=== PATIENT | female | born 1955 | race Two or more races ===

== ENCOUNTER 2024-04-23 12:15 | Emergency (ER) | payer MEDICARE, SELFPAY ==
--- NOTE | 2024-04-23 13:09 | XR_ITS ---
Examination: PA lateral chest 2 views TECHNIQUE: Upright PA lateral chest 2 views Exam date and time: April 23, 2024 1339 hours Comparison May 15, 2020 INDICATIONS: Shortness of breath chest pain beginning 2 days ago FINDINGS: Mild opacity in the lingular segment obscuring detail left cardiac contour Normal heart size No pulmonary edema Intact osseous structures IMPRESSION: Early pneumonia lingular segment left upper lobe
--- NOTE | 2024-04-23 13:09 | EKG_ITS ---
[facility] Test Date: 2024-04-23 Pat Name: DARREL PALMA Department: Room: - Gender: Female Pot Filler: : 1955 Requested By: Asya Brown ([facility]) Nica Order Number: [id number] Reading MD: Asya Brown ([facility]) Nica Measurements Intervals [place] Rate: 112 P: 54 NM: 126 QRS: -31 QRSD: 79 T: 45 QT: 297 QTc: 406 Interpretive Statements SINUS TACHYCARDIA MARKED LEFT AXIS DEVIATION [QRS AXIS < -30] Compared to ECG 05/15/2020 15:11:04 Left-axis deviation now present /store/S0/[id number]/ecg/[id number].pdf
--- NOTE | 2024-04-23 13:10 | PD.EDRME ---
Rapid Medical Screening Exam RME Arrival date/time: 04/23/24 12:15 68-year-old female who presents to the emergency department with complaints of bodyaches, hyperglycemia x 2 days. I have greeted and performed a focused initial assessment of this patient. Initial appropriate labs ordered at this time. A comprehensive ED assessment and evaluation of the patient and analysis of all test and completion of medical decision making process will be conducted by additional ED provider. Chief Complaint: Flu Like Symptoms Time Seen by Provider: 04/23/24 13:02
[2024-04-23] MEDS: ONDANSETRON ODT 4 MG TABRAP PO (13:17)
[2024-04-23 13:24] VITALS: BP 106/68; PULSE 86; RESP 18; TEMP 36.6; O2SAT 100
[2024-04-23 13:41] LABS: Basophils # (Auto) 0.1 Thou/mm3 (0.0-0.2); Basophils % (Auto) 0 % (0-2.5); Eosinophils % (Auto) 0 % (0-10); Hematocrit 33.7 % (36.0-46.0); Hemoglobin 11.7 g/dL (12.0-16.0); Immature Granulocytes % (Auto) 1 % (0-0); Immature Granulocytes Auto 0.09 Thou/mm3 (0.00-0.00); Lymphocytes # (Auto) 0.5 Thou/mm3 (1.0-4.8); Lymphocytes % (Auto) 3 % (10-50); Mean Corpuscular HGB Conc 34.7 g/dl (31.0-37.0); Mean Corpuscular Hemoglobin 30.8 pg (25.0-35.0); Mean Corpuscular Volume 89 fL (80-100); Monocytes % (Auto) 6 % (0-12); Neutrophils # (Auto) 15.6 Thou/mm3 (1.8-7.7); Neutrophils % (Auto) 91 % (37-80); Nucleated Red Blood Cell % 0 /100 WBC (0); Platelet Count 157 Thou/mm3 (140-440); RDW Standard Deviation 42.1 fL (36.4-46.3); White Blood Count 17.3 Thou/mm3 (3.6-11.0)
[2024-04-23 13:58] LABS: B-Type Natriuretic Peptide 84 pg/mL (0-100)
[2024-04-23 14:07] LABS: Alanine Aminotransferase 22 U/L (10-49); Albumin, Serum 3.7 gm/dL (3.4-4.8); Albumin/Globulin Ratio 1.2 (1.2-2.2); Alkaline Phosphatase 162 U/L (46-116); Anion Gap 7 (7-16); Aspartate Amino Transferase 20 U/L (0-34); BUN/Creatinine Ratio 33 Ratio (12-20); Bilirubin,Total 0.3 mg/dL (0.3-1.2); Blood Urea Nitrogen 30 mg/dL (9-23); Calcium 8.7 mg/dL (8.3-10.6); Calcium (Corrected) 8.9 mg/dL (8.5-10.1); Carbon Dioxide 30.7 mMol/L (20.0-31.0); Chloride 91 mMol/L (98-107); Creatinine (Component) 0.9 mg/dL (0.6-1.3); Lipase 22 U/L (12-53); Magnesium 2.1 mg/dL (1.6-2.6); Osmolality,Calculated 282 (275-295); Potassium 4.3 mMol/L (3.4-5.1); Sodium 129 mMol/L (136-145); Total Protein 6.7 gm/dL (5.7-8.2); Troponin I 0.032 ng/mL (0.0-0.045); eGFR > 60 See Note
[2024-04-23 14:09] LABS: Glucose 408 mg/dL (74-106)
[2024-04-23 14:27] LABS: INR 1.1 (0.9-1.3); Prothrombin Time 11.6 Seconds (9.0-12.2)
--- NOTE | 2024-04-23 15:03 | PC.NURSE ---
no answer x 1 at 1500. checked outside and lobby.
[2024-04-23] MEDS: INSULIN GLARGINE (Lantus) 5 UNIT/0.05 ML (PER 5 UNITS) 10 UNIT SC (15:22)
--- NOTE | 2024-04-23 15:25 | EDNOTE_ITS ---
ED General RME/HPI General Chief complaint: Flu Like Symptoms Stated complaint: BODY PAIN/ABD PAIN/NOT EATING x 3 DAYS Time Seen by Provider: 04/23/24 13:02 Arrival date/time: 04/23/24 12:15 RME / HPI [facility] 04/23/24 12:15 headaches, bodyaches, hyperglycemia x 2 days. HPI: Patient is a 68-year-old female with PMH of essential HTN, type 2 IDDM, hyperlipidemia, GERD and peripheral neuropathy, who presented to the emergency department with complaints of headaches, chills and hyperglycemia x 2 days. Patient's symptoms started 30-48 hours ago, she initially started experiencing chills and subjective fevers, which was followed by sudden elevation in her blood sugar (300-400). Patient endorses that she is otherwise compliant with her insulin and frequently checks her sugar at home. She has also had a non productive cough for the last week which she attributed to a viral infection. She denies having any sick contacts or other systemic symptoms. She recently travelled to [place] and discontinued her BP medications as she ran out of pills. She is unsure if she may have caught an infection on her vacation. Of note, patient's PCP recently reduced her Glargine from 30 units HS -> 25 units HS. In the ED, vitals showed BS was > 400, temp and BP wnl, and WBC 17.3 Past medical history: essential HTN, type 2 IDDM, hyperlipidemia, GERD and peripheral neuropathy Allergies: NKFDA Social history: Marital?Status:? Tobacco?Use:?Denies ETOH?Use:?Denies Drug?Note:?Denies Social?History?Note:?Lives?at home with family Family history: Denies any family history of scd or stroke. No cancers. L Related Data Home Medications ?Medication ?Instructions ?Recorded ?Confirmed insulin detemir U-100 100 unit/mL 30 unit subcut HS 05/15/20 05/15/20 subcutaneous solution (Levemir U-100 Insulin) insulin regular human 100 unit/mL 15 unit subcut DAILY 05/15/20 05/15/20 injection solution (Novolin R Regular U-100 Insulin) Previous Rx's ?Medication ?Instructions ?Recorded amoxicillin 875 mg-potassium 1 tab PO BID #10 tabs 05/16/20 clavulanate 125 mg tablet (Augmentin) doxycycline hyclate 100 mg tablet 100 mg PO BID #14 tabs 05/16/20 pantoprazole 40 mg tablet,delayed 40 mg PO QDAY #20 tabs 05/05/23 release (Protonix) rizatriptan 10 mg tablet (Maxalt) 10 mg PO Q2H PRN migraine headache 05/05/23 #10 tabs amoxicillin 875 mg-potassium 1 tab PO BID #14 tabs 04/23/24 clavulanate 125 mg tablet Allergies Allergy/AdvReac Type Severity Reaction Status Date / Time No Known Allergies Allergy Verified 04/23/24 12:22 Review of Systems Review of Systems Narrative Review of Systems: GENERAL: fevers/chills , no diaphoresis, bodyaches HEENT: Denies headache or visual/hearing changes. Denies nasal discharge. NEURO: Denies unusual weakness or difficulty speaking. CARDIO: Denies chest pain or palpitations. PULM: Denies SOB, dry coughing, or wheezing. GI: Denies abdominal pain, N/V/C/D. Reports having BMs URO: Denies burning/itching/pain/urinary changes. W[employer]PER[employer]: Denies menstrual changes, hot flashes. MSK/EXT/SKIN: Denies joint/skeletal/muscle pain, issues/changes in upper or lower extremities, itchiness, or superficial pain. PSYCH: Cooperative, pleasant mood & affect. The rest of the review of systems is otherwise negative. ED Exam Narrative Physical exam: Constitutional Alert, oriented x4 and comfortable HEENT Vision grossly intact. Patent nares. Trachea midline. Respiratory Chest normal on inspection and clear to auscultation bilaterally. Cardiovascular S1 and S2 audible, RRR. No murmurs or carotid bruit. No gross JVD. Abdominal Soft and non tender to palpation in all quadrants. BS + Genitourinary No bladder tenderness, no flank pain. Normal to palpation. Musculoskeletal Extremities tone within normal limits. No LE edema. Neurological CN II - XII grossly intact. Extremity motor and sensation grossly intact. Skin Warm, dry and intact. No apparent lesions. Psychiatric Patient has a good affect, is cooperative. Course Quality Measures none Orders Category Date Time Status Bedside COVID-19 Antigen Test NOW Care 04/23/24 13:09 Completed Bedside Influenza A&B Antigen Test NOW Care 04/23/24 13:10 Completed EKG (ED ONLY) *Do not use* NOW Care 04/23/24 13:09 Completed EKG (ED Only) Stat Exams 04/23/24 13:09 Draft XR chest 2V Stat Exams 04/23/24 13:09 Completed B-Type Natriuretic Peptide Stat Lab 04/23/24 13:31 Completed Beta Hydroxybutyrate Stat Lab 04/23/24 14:49 Completed CBC Stat Lab 04/23/24 13:31 Completed Comprehensive Metabolic Panel Stat Lab 04/23/24 13:31 Completed Lactic Acid [Lactate (Lactic Acid)] Stat Lab 04/23/24 16:24 Completed Lipase Stat Lab 04/23/24 13:31 Completed Magnesium Stat Lab 04/23/24 13:31 Completed Prothrombin Time with INR Stat Lab 04/23/24 13:31 Completed Troponin I Stat Lab 04/23/24 13:31 Completed Urinalysis Stat Lab 04/23/24 20:10 Completed Insulin Glargine Inj [Lantus Inj] Med 04/23/24 14:39 Discontinued 10 unit SC X1 ONE Levofloxacin/D5w 750Mg Ivpb [Levaquin Ivpb] Med 04/23/24 16:09 Discontinued 750 mg in 150 ml IV X1 Ondansetron Odt [Zofran Odt] Med 04/23/24 13:09 Discontinued 4 mg PO X1 ONE Sodium Chloride 0.9% 500 ml [Ns] 500 ml Med 04/23/24 15:21 Discontinued IV 999 mls/hr cefTRIAXone [Rocephin] 1,000 mg Med 04/23/24 21:44 Discontinued Sodium Chloride 0.9% [Ns] 50 ml IV X1 Vital Signs Vital signs: Vital Signs Temperature 97.8 F 04/23/24 13:24 Pulse Rate 86 04/23/24 13:24 Respiratory Rate 18 04/23/24 13:24 Blood Pressure 106/68 04/23/24 13:24 Pulse Oximetry (%) 100 04/23/24 13:24 Oxygen Delivery Method Room Air 04/23/24 13:24 [facility] Patient data External records reviewed:: None Clinical information provided by:: patient and spouse Social determinants that could affect healthcare access:: none Patient has the following chronic illnesses:: as above How is presenting disease/condition affected by chronic disease/condition?: e xacerbated by Evaluation data The following diagnostics were reviewed and interpreted by me:: lab results and radiology exam(s) Lab and/or radiology exams considered but not ordered:: CT Chest Interpretation Summary: pending results Medications Medications considered but not ordered:: mucinex Medication administrations:: Medication Administration History Discontinued Medications Sodium Chloride (Ns) 500 mls @ 999 mls/hr IV .Q31M ONE Stop: 04/23/24 15:51 Last Infusion: 04/23/24 18:29 Dose: Infused Documented By: Admin: 04/23/24 17:10 Dose: 999 mls/hr Documented By: Levofloxacin/Dextrose (Levaquin Ivpb) 750 mg in 150 mls @ 100 mls/hr IV X1 ONE Stop: 04/23/24 17:38 Last Infusion: 04/23/24 19:34 Dose: Infused Documented By: Admin: 04/23/24 17:12 Dose: 100 mls/hr Documented By: OSIRIS Ceftriaxone Sodium 1,000 mg/ (Sodium Chloride) 50 mls @ 100 mls/hr IV X1 ONE Stop: 04/23/24 22:13 Last Infusion: 04/23/24 22:36 Dose: Infused Documented By: Admin: 04/23/24 22:03 Dose: 100 mls/hr Documented By: Insulin Glargine (Insulin Glargine (Lantus) 5 Unit/0.05 Ml (Per 5 Units)) 10 unit SC X1 ONE Stop: 04/23/24 14:40 Last Admin: 04/23/24 15:22 Dose: 10 unit Documented By: EDEN Co-signed By: [facility] Ondansetron HCl (Ondansetron Odt 4 Mg Tabrap) 4 mg PO X1 ONE Stop: 04/23/24 13:10 Last Admin: 04/23/24 13:17 Dose: 4 mg Documented By: continue Consultations Consultation(s) initiated? (list below): No Diagnosis Differential Diagnosis ED Complaint MDM: viral infection Most likely diagnosis given after review of the tests above:: pending results Admission Indicated Admission indicated?: not indicated Explain why admission is indicated or not indicated:: Pending results Admission Request Was there a request for admission?: No Disposition Plan Disposition Plan: other (specify) Discharge Attestation Discharge Attestation: Patient being signed out to [facility] physician Dr Bartholomew. Medical Decision Making Differential Diagnosis Differential Diagnosis: viral infection Lab Data 04/23/24 13:31 04/23/24 13:31 Labs: Lab Results 04/23/24 04/23/24 04/23/24 Range/Units 13:31 14:49 16:24 WBC 17.3 H (3.6-11.0) Thou/mm3 RBC 3.80 L (4.00-5.20) Miln/mm3 Hgb 11.7 L (12.0-16.0) g/dL Hct 33.7 L (36.0-46.0) % MCV 89 (80-100) fL MCH 30.8 (25.0-35.0) pg MCHC 34.7 (31.0-37.0) g/dl RDW Std Deviation 42.1 (36.4-46.3) fL Plt Count 157 (140-440) Thou/mm3 Neut % (Auto) 91 H (37-80) % Lymph % (Auto) 3 L (10-50) % [place] % (Auto) 6 (0-12) % Eos % (Auto) 0 (0-10) % Baso % (Auto) 0 (0-2.5) % Neut # (Auto) 15.6 H (1.8-7.7) Thou/mm3 Lymph # (Auto) 0.5 L (1.0-4.8) Thou/mm3 [place] # (Auto) 1.0 H (0.0-0.8) Thou/mm3 Eos # (Auto) 0.0 (0.0-0.5) Thou/mm3 Baso # (Auto) 0.1 (0.0-0.2) Thou/mm3 Immature Gran # (Auto) 0.09 H (0.00-0.00) Thou/mm3 Absolute Nucleated RBC 0.00 (0.00-0.00) Thou/mm3 Immature Gran % 1 H (0-0) % Nucleated RBC % 0 (0) /100 WBC PT 11.6 (9.0-12.2) Seconds INR 1.1 (0.9-1.3) Sodium 129 L (136-145) mMol/L Potassium 4.3 (3.4-5.1) mMol/L Chloride 91 L (98-107) mMol/L Carbon Dioxide 30.7 (20.0-31.0) mMol/L Anion Gap 7 (7-16) BUN 30 H (9-23) mg/dL Creatinine 0.9 (0.6-1.3) mg/dL Estim Creat Clear Calc Not Performed. eGFR > 60 (60 - ) See Note BUN/Creatinine Ratio 33 H (12-20) Ratio Glucose 408 H* (74-106) mg/dL Calculated Osmolality 282 (275-295) Lactic Acid 1.4 (0.4-2.0) mMol/L Calcium 8.7 (8.3-10.6) mg/dL Corrected Calcium 8.9 (8.5-10.1) mg/dL Magnesium 2.1 (1.6-2.6) mg/dL Total Bilirubin 0.3 (0.3-1.2) mg/dL AST 20 (0-34) U/L ALT 22 (10-49) U/L Alkaline Phosphatase 162 H (46-116) U/L Troponin I 0.032 (0.0-0.045) ng/mL B-Natriuretic Peptide 84 (0-100) pg/mL Total Protein 6.7 (5.7-8.2) gm/dL Albumin 3.7 (3.4-4.8) gm/dL Globulin 3.0 (2.3-3.5) gm/dL Albumin/Globulin Ratio 1.2 (1.2-2.2) Lipase 22 (12-53) U/L Beta-Hydroxybutyrate/Acetoacetate 1.0 H (<0.6) mmol/L Ur Collection Type Urine Color (Lt Yel-Yel) Urine Clarity (Clear/Hazy) Urine pH (5.0-7.0) Ur Specific [place] (1.001-1.035) Urine Protein (Neg - Trace) Urine Glucose (UA) (Negative) Urine Ketones (Negative) Urine Blood (Negative) Urine Nitrite (Negative) Urine Bilirubin (Negative) Urine Urobilinogen (Auto) (0.0-1.0) mg/dL Ur Leukocyte Esterase (Negative) Urine RBC (0-3) /hpf Urine WBC (0-5) /hpf Ur Squamous Epith Cells (0-5) /hpf Urine Bacteria (None) 04/23/24 Range/Units 20:10 WBC (3.6-11.0) Thou/mm3 RBC (4.00-5.20) Miln/mm3 Hgb (12.0-16.0) g/dL Hct (36.0-46.0) % MCV (80-100) fL MCH (25.0-35.0) pg MCHC (31.0-37.0) g/dl RDW Std Deviation (36.4-46.3) fL Plt Count (140-440) Thou/mm3 Neut % (Auto) (37-80) % Lymph % (Auto) (10-50) % [place] % (Auto) (0-12) % Eos % (Auto) (0-10) % Baso % (Auto) (0-2.5) % Neut # (Auto) (1.8-7.7) Thou/mm3 Lymph # (Auto) (1.0-4.8) Thou/mm3 [place] # (Auto) (0.0-0.8) Thou/mm3 Eos # (Auto) (0.0-0.5) Thou/mm3 Baso # (Auto) (0.0-0.2) Thou/mm3 Immature Gran # (Auto) (0.00-0.00) Thou/mm3 Absolute Nucleated RBC (0.00-0.00) Thou/mm3 Immature Gran % (0-0) % Nucleated RBC % (0) /100 WBC PT (9.0-12.2) Seconds INR (0.9-1.3) Sodium (136-145) mMol/L Potassium (3.4-5.1) mMol/L Chloride (98-107) mMol/L Carbon Dioxide (20.0-31.0) mMol/L Anion Gap (7-16) BUN (9-23) mg/dL Creatinine (0.6-1.3) mg/dL Estim Creat Clear Calc eGFR (60 - ) See Note BUN/Creatinine Ratio (12-20) Ratio Glucose (74-106) mg/dL Calculated Osmolality (275-295) Lactic Acid (0.4-2.0) mMol/L Calcium (8.3-10.6) mg/dL Corrected Calcium (8.5-10.1) mg/dL Magnesium (1.6-2.6) mg/dL Total Bilirubin (0.3-1.2) mg/dL AST (0-34) U/L ALT (10-49) U/L Alkaline Phosphatase (46-116) U/L Troponin I (0.0-0.045) ng/mL B-Natriuretic Peptide (0-100) pg/mL Total Protein (5.7-8.2) gm/dL Albumin (3.4-4.8) gm/dL Globulin (2.3-3.5) gm/dL Albumin/Globulin Ratio (1.2-2.2) Lipase (12-53) U/L Beta-Hydroxybutyrate/Acetoacetate (<0.6) mmol/L Ur Collection Type Clean Catch Urine Color Yellow (Lt Yel-Yel) Urine Clarity Hazy (Clear/Hazy) Urine pH 6.0 (5.0-7.0) Ur Specific [place] 1.024 (1.001-1.035) Urine Protein 2+ A (Neg - Trace) Urine Glucose (UA) 4+ A (Negative) Urine Ketones 1+ A (Negative) Urine Blood 2+ A (Negative) Urine Nitrite Positive (Negative) Urine Bilirubin Negative (Negative) Urine Urobilinogen (Auto) 2.0 (0.0-1.0) mg/dL Ur Leukocyte Esterase Positive (Negative) Urine RBC 2 (0-3) /hpf Urine WBC 525 H (0-5) /hpf Ur Squamous Epith Cells < 1 (0-5) /hpf Urine Bacteria None (None) Discharge Plan Plan Patient Disposition: HOME (Self Care) Patient condition on transfer: Stable Prescriptions/Referrals Prescriptions/Med Rec: New amoxicillin-pot clavulanate 875-125 mg tablet 1 tab PO BID Qty: 14 0RF No Action Novolin R Regular U100 Insulin 100 unit/mL Solution 15 unit SUBCUT DAILY Levemir U-100 Insulin 100 unit/mL Solution 30 unit SUBCUT HS amoxicillin-pot clavulanate [Augmentin] 875-125 mg tablet 1 tab PO BID Qty: 10 0RF doxycycline hyclate 100 mg tablet 100 mg PO BID Qty: 14 0RF pantoprazole [Protonix] 40 mg tablet,delayed release (DR/EC) 40 mg PO QDAY Qty: 20 0RF rizatriptan [Maxalt] 10 mg tablet 10 mg PO Q2H PRN (Reason: migraine headache) Qty: 10 0RF Rx Instructions: do not exceed 3 doses per 24 hrs Referrals: Jarrett Young MD [Primary Care Provider] - In 1 week Problem List Clinical Impression: Acute hyperglycemia, Pneumonia Patient/Caregiver Discharge Instructions Education Materials: Glucose Check Steps, ED Pneumonia (Adult) Additional Instructions: Take medications as prescribed. Return to the emergency department for worsening symptoms, or any other concerns. Return to the emergency department for any worsening symptoms, or any other concerns. Print Language: Nigerian Stand Alone Forms: Jane Award Info., Patient Portal Info Letter
[2024-04-23 16:32] LABS: Lactate (Lactic Acid) 1.4 mMol/L (0.4-2.0)
[2024-04-23] MEDS: SODIUM CHLORIDE 0.9% 500 ML 500 ML 999 ML IV (17:10)
[2024-04-23] MEDS: LEVOFLOXACIN/D5W 750MG IVPB 750 MG/150 ML BAG 100 MG IV (17:12)
[2024-04-23 19:43] VITALS: BP 103/59; PULSE 80; RESP 17; TEMP 36.7; O2SAT 96
[2024-04-23 21:17] LABS: Collection Type, Urine Clean Catch
--- NOTE | 2024-04-23 21:38 | PD.EDADDENDU ---
Emergency Room Addendum Addendum Narrative: 1730: This patient was not signed out to me by the resident working with Dr. Acosta. I reviewed lab work and patient will go home. Please refer to the emergency department record for history and examination from initial visit.? Physical exam by me shows patient under no acute distress at this time. 1740: Patient is non-hypoxic and not vomiting, in no acute distress. Will discharge with amoxicillin for the pneumonia.Patient remains clinically stable throughout the emergency department visit. Re-assessment at the time of disposition demonstrates that the patient is in no acute distress. We reviewed all the results, analysis, and treatment plans. Patient is amenable to discharge. Strict return precautions were outlined. Patient was discharged in stable condition.
[2024-04-23 21:49] LABS: Bilirubin,Urine Negative (Negative); Blood,Urine 2+ (Negative); Color,Urine Yellow (Lt Yel-Yel); Glucose, Urine 4+ (Negative); Ketones,Urine 1+ (Negative); Leukocyte Esterase,Urine Positive (Negative); Nitrite,Urine Positive (Negative); Protein,Urine 2+ (Neg - Trace); RBC,Urine 2 /hpf (0-3); Specific Gravity,Urine 1.024 (1.001-1.035); Squamous Epithelial Cell,Urine < 1 /hpf (0-5); WBC,Urine 525 /hpf (0-5)
[2024-04-23 21:52] LABS: Clarity,Urine Hazy (Clear/Hazy)
== END 2024-04-23 22:37 | disposition home or self-care (01) ==
PROVIDERS: Student in an Organized Health Care Education/Training Program; Emergency Provider Nurse Practitioner Primary Care; PCP Family Medicine
DX: J18.9 Pneumonia, unspecified organism (principal); E11.65 Type 2 diabetes mellitus with hyperglycemia; R00.0 Tachycardia, unspecified; I10 Essential (primary) hypertension; Z79.4 Long term (current) use of insulin
CPT/HCPCS: 36415; 71046; 80053; 81001; 82010; 83605; 83690; 83735; 83880; 84484; 85025; 85610; 87400; 87811; 93005; 96365; 96366; 96367; 96372; 99284; J0696; J1815; J1956; J7040; Q0162

== ENCOUNTER 2024-04-25 17:00 | Inpatient (IN) | payer MEDICARE, SELFPAY ==
[2024-04-25 17:22] VITALS: BP 135/84; PULSE 105; RESP 18; TEMP 37.7; O2SAT 98
--- NOTE | 2024-04-25 17:27 | XR_ITS ---
Examination: PA lateral chest 2 views Technique: Upright PA lateral chest 2 views Exam date and time: April 25, 2024 at 1934 hrs. Comparison April 23, 2024 Indications: Coughing shortness of breath this week. Findings: Mild opacity at the lung bases Normal heart size Moderate osteopenia Impression: Mild bibasilar pneumonia
--- NOTE | 2024-04-25 17:27 | PD.EDRME ---
Rapid Medical Screening Exam [facility] Arrival date/time: 04/25/24 17:00 68-year-old female presents the emergency department complaints of fever, cough, shortness of breath Patient was seen 2 days ago diagnosed with pneumonia Chief Complaint: Abdominal Pain Vital signs: Vital Signs Temperature 100 F 04/25/24 17:22 Pulse Rate 105 H 04/25/24 17:22 Respiratory Rate 18 04/25/24 17:22 Blood Pressure 135/84 H 04/25/24 17:22 Pulse Oximetry (%) 98 04/25/24 17:22 Oxygen Delivery Method Room Air 04/25/24 17:22
[2024-04-25 17:58] LABS: Lactate (Lactic Acid) 1.5 mMol/L (0.4-2.0)
[2024-04-25 17:59] LABS: Collection Type, Urine Clean Catch
[2024-04-25 18:01] LABS: Basophils % (Auto) 0 % (0-2.5); Eosinophils % (Auto) 0 % (0-10); Hematocrit 36.2 % (36.0-46.0); Hemoglobin 12.4 g/dL (12.0-16.0); Immature Granulocytes % (Auto) 1 % (0-0); Immature Granulocytes Auto 0.12 Thou/mm3 (0.00-0.00); Lymphocytes # (Auto) 0.8 Thou/mm3 (1.0-4.8); Lymphocytes % (Auto) 5 % (10-50); Mean Corpuscular HGB Conc 34.3 g/dl (31.0-37.0); Mean Corpuscular Hemoglobin 30.5 pg (25.0-35.0); Mean Corpuscular Volume 89 fL (80-100); Monocytes % (Auto) 6 % (0-12); Neutrophils % (Auto) 89 % (37-80); Nucleated Red Blood Cell % 0 /100 WBC (0); Platelet Count 210 Thou/mm3 (140-440); RDW Standard Deviation 43.6 fL (36.4-46.3); Red Blood Count 4.07 Miln/mm3 (4.00-5.20); White Blood Count 16.9 Thou/mm3 (3.6-11.0)
[2024-04-25 18:07] LABS: Bilirubin,Urine Negative (Negative); Blood,Urine 1+ (Negative); Clarity,Urine Clear (Clear/Hazy); Color,Urine Lt-Yellow (Lt Yel-Yel); Glucose, Urine 4+ (Negative); Ketones,Urine 2+ (Negative); Leukocyte Esterase,Urine Positive (Negative); Nitrite,Urine Negative (Negative); PH,Urine 6.5 (5.0-7.0); Protein,Urine 1+ (Neg - Trace); RBC,Urine 2 /hpf (0-3); Specific Gravity,Urine 1.032 (1.001-1.035); Squamous Epithelial Cell,Urine 1 /hpf (0-5); Urobilinogen,Urine Negative mg/dL (0.0-1.0); WBC,Urine 11 /hpf (0-5)
--- NOTE | 2024-04-25 18:16 | EDNOTE_ITS ---
ED Abdominal Pain RME/HPI General Chief Complaint: Abdominal Pain Stated complaint: ab pain. feel like i have a ball in there Time seen by provider: 04/25/24 18:12 Arrival date/time: 04/25/24 17:00 Limitations: no limitations RME / HPI RME / HPI narrative: 04/25/24 17:00 68-year-old female presents the emergency department complaints of fever, cough, shortness of breath Patient was seen 2 days ago diagnosed with pneumonia DR. IZQUIERDO MAIN ED EVALUATION: 68 year old female with past medical history significant for essential hypertension, type 2 IDDM, hyperlipidemia, GERD and peripheral neuropathy presents to the Emergency Department with complaints of generalized malaise, abdominal bloating, dizziness, nausea, and subjective fever. Symptoms are moderate. Onset of symptoms 1 day. No chest pain, no syncope. Related Data Home Medications ?Medication ?Instructions ?Recorded ?Confirmed insulin detemir U-100 100 unit/mL 30 unit subcut HS 05/15/20 05/15/20 subcutaneous solution (Levemir U-100 Insulin) insulin regular human 100 unit/mL 15 unit subcut DAILY 05/15/20 05/15/20 injection solution (Novolin R Regular U-100 Insulin) Previous Rx's ?Medication ?Instructions ?Recorded amoxicillin 875 mg-potassium 1 tab PO BID #10 tabs 05/16/20 clavulanate 125 mg tablet (Augmentin) doxycycline hyclate 100 mg tablet 100 mg PO BID #14 tabs 05/16/20 pantoprazole 40 mg tablet,delayed 40 mg PO QDAY #20 tabs 05/05/23 release (Protonix) rizatriptan 10 mg tablet (Maxalt) 10 mg PO Q2H PRN migraine headache 05/05/23 #10 tabs amoxicillin 875 mg-potassium 1 tab PO BID #14 tabs 04/23/24 clavulanate 125 mg tablet Allergies Allergy/AdvReac Type Severity Reaction Status Date / Time No Known Allergies Allergy Verified 04/25/24 17:02 Review of Systems Review of Systems Systems Reviewed: All systems reviewed, normal except as documented Narrative Review of Systems: GEN: + subjective fever, no chills, no weight loss, + generalized malaise EYES: No discharge, no visual changes, no pain HEENT: No ear pain, no congestion, no sore throat PULM: No shortness of breath, no cough, no congestion CV: No chest pain, no dyspnea on exertion, no palpitations GI: + nausea, no vomiting, no diarrhea, + abdominal bloating, no constipation : No frequency, no urgency and no dysuria MUSC/SKEL: No joint pain, no back pain SKIN: No rash PSYCH: No hallucinations, no depression HEME/LYMPH: No easy bleeding or bruising tendencies NEURO: No weakness, no headache, + dizziness Past Medical History Past Medical History CARDIAC: Negative Cardiac Disorders or Congestive Heart Failure RESPIRATORY: Negative Chronic Obstructive Pulmonary Disease (COPD) or Asthma GENITOURINARY: Negative Renal Disease ENDOCRINE: Positive Endocrine Disorders and Diabetes Mellitus Type 2; Negative Diabetes Mellitus Type 1 HEMATOLOGIC: Negative Sickle Cell Disease Social History SMOKING STATUS: Never smoker SUBSTANCE USE: does not use ALCOHOL: Never ED Exam General Limitations: Present no limitations General appearance: Present alert, in no apparent distress and other (diaphoretic ) Head Head exam: Present atraumatic Eye Eye exam: Present normal appearance, PERRL and EOMI ENT ENT exam: Present normal exam, normal oropharynx and mucous membranes moist Neck Neck exam: Present normal inspection, full ROM and trachea midline Chest Chest inspection: Present normal inspection and symmetric chest wall rise Respiratory Respiratory exam: Present normal lung sounds bilaterally Cardiovascular Cardiovascular exam: Present regular rate, normal rhythm and normal heart sounds Abdominal Exam Abdominal exam: Present soft and normal bowel sounds Extremities Exam Extremities exam: Present normal inspection and full ROM Back Exam Back exam: Present normal inspection and full ROM Neurological Exam Neurological exam: Present alert, oriented X3 and CN II-XII intact Psychiatric Psychiatric exam: Present normal affect and normal mood Skin Skin exam: Present warm, dry, intact and normal color Course Course Course Narrative: 1724: Sepsis alert initiated. Orders made at this time are congruent with ED Adult Sepsis Order List. Re-evaluation is to be completed. 2125: Fluids started. 2154: Sepsis reassessment performed consisting of lab review, vitals, physical exam including auscultation of heart, lungs, and visual evaluation of capillary refills, mucosal membranes and extremities. Quality Measures none Orders Category Date Time Status Bedside Influenza A&B Antigen Test NOW Care 04/25/24 17:[address] Screening NOW Care 04/25/24 19:18 Completed EKG (ED ONLY) *Do not use* NOW Care 04/25/24 21:50 Completed Fingerstick [Bedside Blood Glucose] NOW Care 04/26/24 00:[address] chest abdomen pelvis w Stat Exams 04/25/24 19:18 Completed EKG (ED Only) Stat Exams 04/25/24 21:49 Draft XR chest 2V Stat Exams 04/25/24 17:27 Completed Blood Culture (Lab) Stat Lab 04/25/24 17:48 Received CBC Stat Lab 04/25/24 17:53 Completed Comprehensive Metabolic Panel Stat Lab 04/25/24 17:53 Completed Lactate (Lactic Acid) Stat Lab 04/25/24 17:53 Completed Procalcitonin Stat Lab 04/25/24 17:53 Completed Urinalysis Stat Lab 04/25/24 17:33 Completed Urine Culture Stat Lab 04/25/24 17:33 Received Acetaminophen Tab [Tylenol ES Tab] Med 04/25/24 17:27 Discontinued 1,000 mg PO X1 ONE Sodium Chloride 0.9% 1000 ml [Ns] 1,973 ml Med 04/25/24 20:27 Discontinued IV 1,973 mls/hr cefTRIAXone [Rocephin] 1,000 mg Med 04/25/24 20:26 Discontinued Sodium Chloride 0.9% [Ns] 50 ml IV X1 Reevaluation(s) Reevaluation #1: Patient continues to have left flank pain. Discussed results with the patient. Will consult an admission to the hospitalist. Time: 00:24 Vital Signs Vital signs: Vital Signs Temperature 100 F 04/25/24 17:22 Pulse Rate 105 H 04/25/24 17:22 Respiratory Rate 18 04/25/24 17:22 Blood Pressure 135/84 H 04/25/24 17:22 Pulse Oximetry (%) 98 04/25/24 17:22 Oxygen Delivery Method Room Air 04/25/24 17:22 Abdominal Pain MDM MDM Narrative MDM Narrative:: I, Hyun Mccurdy am scribing for and in the presence of Dr. Izquierdo. 68-year-old female with history of diabetes coming in with ill-appearing and dizziness with acute pyelonephritis, hyperglycemia and procalcitonin greater than 8.0. Patient screens positive for sepsis and likely UTI as a source. CT scan showing acute pyelonephritis. Concern for bacteremia. On reevaluation patient still having some left flank pain. Recommend admission for IV antibiotics and observation. Patient data External records reviewed:: [facility] [place] previous records (Reviewed last ED visit dated 04/23/24, discharged with the following: Acute hyperglycemia) Clinical information provided by:: patient Social determinants that could affect healthcare access:: none Patient has the following chronic illnesses:: essential hypertension, type 2 IDDM, hyperlipidemia, GERD and peripheral neuropathy How is presenting disease/condition affected by chronic disease/condition?: uneffected by Evaluation data The following diagnostics were reviewed and interpreted by me:: lab results, radiology exam(s) and EKG tracing(s) (done at 2257, NSR, rate of 79, normal intervals, normal axis, no acute ST or T-wave changes, no STEMI, according to my interpretation.) Lab and/or radiology exams considered but not ordered:: none Interpretation Summary: Procedure(s): XR chest 2V Accession Number(s): [id number] cc: David (RICARDO),Keven SILVA; Jarrett Young MD; Farhan Pratt MD~ Examination: PA lateral chest 2 views Technique: Upright PA lateral chest 2 views Exam date and time: April 25, 2024 at 1934 hrs. Comparison April 23, 2024 Indications: Coughing shortness of breath this week. Findings: Mild opacity at the lung bases Normal heart size Moderate osteopenia Impression: Mild bibasilar pneumonia Dictated By: Farhan Pratt MD ----- Procedure(s): CT chest abdomen pelvis w Accession Number(s): [id number] cc: Jarrett Young MD; Farhan Pratt MD; Jacquelyn Izquierdo MD~ Examination: CT chest with intravenous contrast CT abdomen with intravenous contrast CT pelvis with intravenous contrast 2-D coronal and sagittal reconstructions Time of exam: April 25, 2024 0856 hrs. Comparison May 16, 2020 Indications: Nausea shortness of breath abdominal pain today CTDI: vol (mGy) : 12.56 DLP: (mGycm): 602 Technique: Multiple axial images of the chest, abdomen and pelvis with intravenous contrast, 3.0 mm slice thickness. Images obtained post intravenous injection Isovue 370 60 cc. 2-D sagittal and coronal reconstructions. Low dose protocols were performed. One or more of the following dose reduction techniques were used; automated exposure control, adjustment of the mA and/or KV according to patient size, use of iterative reconstruction technique. Findings: No thoracic aortic aneurysmal dilatation or dissection No pulmonary artery emboli No paratracheal tracheobronchial or bronchopulmonary adenopathy Stable 13 mm nodule in the anterior mediastinum compared with May 16, 2020 No interval pneumonia or pulmonary edema No pleural disease No visualized liver or splenic lesion No gallstones Spleen is not enlarged Gastric mucosa appears diffusely thickened No pancreatic mass Aorta in the abdomen normal size Marked edema involving the left kidney with perinephric stranding No ureteral calculi No bowel obstruction Normal appendix 20 mm fat-containing umbilical hernia No diverticulitis Retroverted uterus Mild free fluid in the pelvis No adnexal mass Urinary bladder shows marked wall thickening up to 11 mm Moderate osteopenia Impression: No thoracic aortic aneurysm dilatation Negative for pulmonary artery emboli No pneumonia or pulmonary edema or pleural disease Acute left pyelonephritis Normal appendix Urinary bladder wall thickening most consistent with cystitis, clinical correlation advised Dictated By: Farhan Pratt MD Medications / Prescriptions Medications or Prescriptions considered but not ordered:: none Medication administrations:: Medication Administration History Discontinued Medications Acetaminophen (Acetaminophen 500 Mg Tablet) 1,000 mg PO X1 ONE Stop: 04/25/24 17:28 Last Admin: 04/25/24 18:20 Dose: 1,000 mg Documented By: SONYA Ceftriaxone Sodium 1,000 mg/ (Sodium Chloride) 50 mls @ 100 mls/hr IV X1 ONE Stop: 04/25/24 20:55 Last Infusion: 04/25/24 22:05 Dose: Infused Documented By: Admin: 04/25/24 21:28 Dose: 100 mls/hr Documented By: SONYA Sodium Chloride (Ns) 1,973 mls @ 1,973 mls/hr 30 ml/kg infuse over 60 min (1973 ml) IV .Q1H ONE; Protocol Stop: 04/25/24 21:26 Last Infusion: 04/25/24 23:37 Dose: Infused Documented By: Admin: 04/25/24 21:26 Dose: 1,973 mls/hr Documented By: SONYA see above Consultations Consultation(s) initiated? (list below): Yes Consultation #1 (Physician, Specialty, Details): Discussed case with [the resident physician, attending Dr. Millan] from Hospitalist service regarding admission. Discussed patients ED course, exam findings, labs, and radiology results. The Hospitalist [agrees] to accept the patient for admission. Time: 00:28 Diagnosis Differential diagnosis abdominal pain: abdominal pain and other (UTI, dehydration, electrolyte imbalance) Most likely diagnosis given after review of the tests above:: pyelonephritis Admission Indicated Admission indicated?: indicated Admission Request Was there a request for admission?: Yes Admission Attestation Admission request attestation: Discussed case with [] from Hospitalist service regarding admission. Discussed patients ED course, exam findings, labs, and radiology results. The Hospitalist [agrees,declines] to accept the patient for admission. Disposition Plan Disposition Plan: Admit Critical Care Time Critical Care Time Critical Care Time: Yes Total Critical Care Time (min.): 40 Attestation: The high probability of sudden, clinically significant deterioration in the patient?s condition required the highest level of my preparedness to intervene urgently. The services I provided to this patient were to treat and/or prevent clinically significant deterioration. Services included the following: chart data review, reviewing nursing notes and/or old charts, documentation time, sr technical sales consultant collaboration regarding findings and treatment options, medication orders and management, direct patient care, vital sign assessments and ordering, interpreting and reviewing diagnostic studies and lab tests. Aggregate critical care time includes only time during which I was engaged in work directly related to the patient?s care, as described above, whether at bedside or elsewhere in the Emergency Department. It did not include time spent performing other reported procedures or the services of residents, students, nurses or physician assistants. Discharge Plan Plan Patient Disposition: Admit Acute Care w/in Hospital Patient condition on transfer: Stable Prescriptions/Referrals Prescriptions/Med Rec: No Action Novolin R Regular U100 Insulin 100 unit/mL Solution 15 unit SUBCUT DAILY Levemir U-100 Insulin 100 unit/mL Solution 30 unit SUBCUT HS amoxicillin-pot clavulanate [Augmentin] 875-125 mg tablet 1 tab PO BID Qty: 10 0RF doxycycline hyclate 100 mg tablet 100 mg PO BID Qty: 14 0RF pantoprazole [Protonix] 40 mg tablet,delayed release (DR/EC) 40 mg PO QDAY Qty: 20 0RF rizatriptan [Maxalt] 10 mg tablet 10 mg PO Q2H PRN (Reason: migraine headache) Qty: 10 0RF Rx Instructions: do not exceed 3 doses per 24 hrs amoxicillin-pot clavulanate 875-125 mg tablet 1 tab PO BID Qty: 14 0RF Referrals: Jarrett Young MD [Primary Care Provider] - In 1 week Problem List Clinical Impression: Elevated procalcitonin, Acute hyperglycemia, Acute bacterial pyelonephritis Patient/Caregiver Discharge Instructions Print Language: Kazakh Stand Alone Forms: Jane Award Info., Patient Portal Info Letter
[2024-04-25] MEDS: ACETAMINOPHEN 500 MG TABLET 1000 MG PO (18:20)
[2024-04-25 18:59] LABS: Alanine Aminotransferase 35 U/L (10-49); Albumin, Serum 3.9 gm/dL (3.4-4.8); Anion Gap 9 (7-16); Aspartate Amino Transferase 47 U/L (0-34); BUN/Creatinine Ratio 24 Ratio (12-20); Bilirubin,Total 0.3 mg/dL (0.3-1.2); Blood Urea Nitrogen 22 mg/dL (9-23); Calcium 8.7 mg/dL (8.3-10.6); Calcium (Corrected) 8.8 mg/dL (8.5-10.1); Carbon Dioxide 26.9 mMol/L (20.0-31.0); Chloride 94 mMol/L (98-107); Creatinine (Component) 0.9 mg/dL (0.6-1.3); Osmolality,Calculated 283 (275-295); Potassium 4.1 mMol/L (3.4-5.1); Sodium 130 mMol/L (136-145); Total Protein 6.8 gm/dL (5.7-8.2); eGFR > 60 See Note
[2024-04-25 19:00] LABS: Albumin/Globulin Ratio 1.3 (1.2-2.2); Alkaline Phosphatase 201 U/L (46-116); Globulin 2.9 gm/dL (2.3-3.5); Procalcitonin 8.03 ng/ml (0.0-0.49)
[2024-04-25 19:04] LABS: Glucose 432 mg/dL (74-106)
[2024-04-25 19:09] VITALS: BP 118/73; PULSE 100; RESP 18; TEMP 37.6; O2SAT 96
--- NOTE | 2024-04-25 19:18 | XR_ITS ---
Examination: CT chest with intravenous contrast CT abdomen with intravenous contrast CT pelvis with intravenous contrast 2-D coronal and sagittal reconstructions Time of exam: April 25, 2024 0856 hrs. Comparison May 16, 2020 Indications: Nausea shortness of breath abdominal pain today CTDI: vol (mGy) : 12.56 DLP: (mGycm): 602 Technique: Multiple axial images of the chest, abdomen and pelvis with intravenous contrast, 3.0 mm slice thickness. Images obtained post intravenous injection Isovue 370 60 cc. 2-D sagittal and coronal reconstructions. Low dose protocols were performed. One or more of the following dose reduction techniques were used; automated exposure control, adjustment of the mA and/or KV according to patient size, use of iterative reconstruction technique. Findings: No thoracic aortic aneurysmal dilatation or dissection No pulmonary artery emboli No paratracheal tracheobronchial or bronchopulmonary adenopathy Stable 13 mm nodule in the anterior mediastinum compared with May 16, 2020 No interval pneumonia or pulmonary edema No pleural disease No visualized liver or splenic lesion No gallstones Spleen is not enlarged Gastric mucosa appears diffusely thickened No pancreatic mass Aorta in the abdomen normal size Marked edema involving the left kidney with perinephric stranding No ureteral calculi No bowel obstruction Normal appendix 20 mm fat-containing umbilical hernia No diverticulitis Retroverted uterus Mild free fluid in the pelvis No adnexal mass Urinary bladder shows marked wall thickening up to 11 mm Moderate osteopenia Impression: No thoracic aortic aneurysm dilatation Negative for pulmonary artery emboli No pneumonia or pulmonary edema or pleural disease Acute left pyelonephritis Normal appendix Urinary bladder wall thickening most consistent with cystitis, clinical correlation advised
[2024-04-25] MEDS: SODIUM CHLORIDE 0.9% 1973 ML IV (21:26)
--- NOTE | 2024-04-25 21:49 | EKG_ITS ---
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
[2024-04-25 23:46] VITALS: BP 145/82; PULSE 83; RESP 18; TEMP 37; O2SAT 96
--- NOTE | 2024-04-26 01:29 | ESHP_ITS ---
Documentation for date of: 04/26/24 HPI History of Present Illness Chief complaint: pain abdomen History of present illness: Patient is [place]ish-speaking 68-year-old female with past medical history of diabetes on insulin presented to the hospital with chief complaints of abdominal pain on the left side radiating to the back since 1 week. Patient was apparently normal 1 week ago, then she developed abdominal pain radiating to the left and went to see a doctor in [place] following which she got a shot for pain and came back to [place]. Since 4 days, patient is complaining of fever associated with chills and rigors, had flulike symptoms. Denies burning micturition, shortness of breath, palpitations, chest pain. Patient came to the ED 2 days ago with similar complaints and was discharged from the ED as patient is having uncontrolled diabetes mellitus. Patient return to the ED on the day of admission with similar complaints of abdominal pain on the left side radiating to the back. Endorsed that fevers are subsided but still having bodyaches. ED Course: -Initial vitals were blood pressure 135/84 mmHg, pulse rate 105 bpm, respiratory rate 18/min, temperature 100, SpO2 98% with room air -Labs significant for WBC 16.9, sodium 130, chloride 94, glucose 432, AST 47, procalcitonin 8.03. Urine analysis showed 1+ proteinuria, 4+ glucosuria, 2+ ketonuria, 11 WBC -CT chest/abdomen/pelvis showed acute left pyelonephritis -In the ED, patient was given Tylenol, ceftriaxone, IV fluids. -Patient was admitted for acute pyelonephritis Past medical history: Diabetes mellitus Past surgical history: Not significant Social history: Denies smoking, alcohol, other illicit drug abuse. Review of Systems Review of Systems Systems Reviewed: All systems reviewed, normal except as documented Past Medical History Past Medical History ENDOCRINE: Positive Diabetes Mellitus Type 2 Exam Vital Signs Temp Pulse Resp BP Pulse Ox O2 Del Method 98.6 F 83 18 145/82 H 96 Room Air 04/25/24 23:46 04/25/24 23:46 04/25/24 23:46 04/25/24 23:46 04/25/24 23:46 04/25/24 23:46 Narrative Exam General: Awake. HEENT: Normocephalic, atraumatic, mucous membranes moist. Heart: Regular rate and rhythm, no murmurs. Lungs: Clear to auscultation with no wheezing or crackles. Abdomen: Soft, nondistended, tenderness in LUQ, costovertebral tenderness on left side, positive bowel sounds. ?No guarding or rebound tenderness. Neurologic: Alert and oriented x3, no gross neurological deficit, and patient able to move all 4 extremities. Extremities: No edema. Skin: No rash or ecchymoses. Results: Labs 04/25/24 17:53 04/25/24 17:53 Labs: Short CBC 04/25/24 Range/Units 17:53 WBC 16.9 H (3.6-11.0) Thou/mm3 Hgb 12.4 (12.0-16.0) g/dL Hct 36.2 (36.0-46.0) % Plt Count 210 D (140-440) Thou/mm3 BMP 04/25/24 17:53 Sodium 130 L Potassium 4.1 Chloride 94 L Carbon Dioxide 26.9 BUN 22 Creatinine 0.9 Glucose 432 H* Calcium 8.7 Liver Function 04/25/24 Range/Units 17:53 Total Bilirubin 0.3 (0.3-1.2) mg/dL AST 47 H (0-34) U/L ALT 35 (10-49) U/L Alkaline Phosphatase 201 H D (46-116) U/L Albumin 3.9 (3.4-4.8) gm/dL Urine 04/25/24 Range/Units 17:33 Urine Color Lt-Yellow (Lt Yel-Yel) Urine Clarity Clear (Clear/Hazy) Urine pH 6.5 (5.0-7.0) Ur Specific [place] 1.032 (1.001-1.035) Urine Protein 1+ A (Neg - Trace) Urine Glucose (UA) 4+ A (Negative) Quality Measures Quality Measures none Advance care planning discussed with:: patient and spouse Medications Home Medications and Allergies Home Medications ?Medication ?Instructions ?Recorded ?Confirmed ?Type insulin detemir U-100 100 unit/mL 30 unit subcut HS 05/15/20 05/15/20 History subcutaneous solution (Levemir U-100 Insulin) insulin regular human 100 unit/mL 15 unit subcut DAILY 05/15/20 05/15/20 History injection solution (Novolin R Regular U-100 Insulin) Allergies Allergy/AdvReac Type Severity Reaction Status Date / Time No Known Allergies Allergy Verified 04/25/24 17:02 Visit Medications Acetaminophen (Acetaminophen 325 Mg Tablet) 650 mg PO Q6H PRN PRN Reason: Fever >101.5 Stop: 05/26/24 01:04 Magnesium Hydroxide (Milk Of Magnesia Susp 30 Ml Udc) 30 ml PO QDAY PRN; Protocol PRN Reason: CONSTIPATION Stop: 05/26/24 01:04 Ondansetron HCl (Ondansetron Inj 2 Mg/Ml Inj 2 Ml) 4 mg IV Q6H PRN; Protocol PRN Reason: NAUSEA OR VOMITING Stop: 05/26/24 01:04 Discontinued Medications Acetaminophen (Acetaminophen 500 Mg Tablet) 1,000 mg PO X1 ONE Stop: 04/25/24 17:28 Last Admin: 04/25/24 18:20 Dose: 1,000 mg Ceftriaxone Sodium 1,000 mg/ (Sodium Chloride) 50 mls @ 100 mls/hr IV X1 ONE Stop: 04/25/24 20:55 Last Infusion: 04/25/24 22:05 Dose: Infused Sodium Chloride (Ns) 1,973 mls @ 1,973 mls/hr 30 ml/kg infuse over 60 min (1973 ml) IV .Q1H ONE; Protocol Stop: 04/25/24 21:26 Last Infusion: 04/25/24 23:37 Dose: Infused Ceftriaxone Sodium/Dextrose (Rocephin/D5w 1gm Iv Premix) 50 mls @ 100 mls/hr IV QDAY KARUNA Stop: 05/03/24 01:24 Assessment & Plan Plan A 68-year-old female with past medical history of diabetes mellitus on insulin presented to hospital with abdominal pain since 1 week and admitted for acute left pyelonephritis # Acute left pyelonephritis # Secondary to uncontrolled diabetes mellitus # Leukocytosis -Presented with history of left abdominal pain radiating to the back since 1 week -Also endorsed that she is having fever with chills and rigors since 4 days -Vitals are stable at the time of admission except for mildly elevated blood pressure 135/84 mmHg -On examination left costovertebral tenderness noted -Labs showed elevated WBC 16.9, procalcitonin 8.03 -Urine analysis showed 1+ proteinuria, 4+ glucosuria, 2+ ketones, 11 WBC -CT chest/abdomen/pelvis showed acute left pyelonephritis Plan -Started on ceftriaxone 1 g IV daily [04/25- -follow-up with blood and urine culture results # Uncontrolled diabetes mellitus -Blood sugar at the time of admission is 432 -A1c is 10.2 in 2020 -Repeat HbA1c is ordered -Placed on insulin sliding scale -Started on Lantus 10 units at 10 PM, titrate as needed -Low carb consistent diet -Diabetic education # Mild hyponatremia -Sodium at the time of admission is 130 -Pseudohyponatremia due to elevated blood sugars, 432 -Monitor electrolytes Hospital Maintenance: Dispo: MedSurg DVT ppx: SCD GI ppx: Not needed Diet: Low carbohydrate consistent IV lines: Peripheral Code status: Full Patient plan of care was discussed with the attending physician, Dr. Monty Knott, PGY1 Attending Provider Attestation/Addendum I have discussed and was present for the essential components of the history, physical examination, diagnosis, and treatment plan with the resident. I agree with the patient's care as documented by the resident and amended herein by me. Gab Millan DO. Patient seen and evaluated in the ED. In short, sick 8-year-old female with significant past medical history of uncontrolled diabetes on insulin who presented to the hospital with left flank and left-sided abdominal pain which began approximately 1 week prior to admission, patient subsequently admitted for acute left-sided pyelonephritis. In the ED, vital signs stable, patient afebrile, initial temp however was not 100. Significant labs included WBC of 16.9 with slight left shift, sodium 130, chloride 94, glucose elevated at 432, alk phos also elevated at 201, Pro-[place]an 8.03, UA also positive. Chest x-ray significant for mild bibasilar pneumonia, CTAP significant for acute left pyelonephritis and bladder wall thickening consistent with cystitis. Initial EKG demonstrated NSR. Patient given a dose of ceftriaxone and nearly 2 L NS in the ED. Patient admitted to [facility], will continue ceftriaxone, follow with blood and urine cultures and start basal bolus insulin at this time. Likely discharge in 1 to 2 days pending improvement and culture results. A1c ordered and pending Although this document has been carefully reviewed, there may still be some phonetic and other typographical errors. These errors are purely grammatical due to imperfections in the software program and should not be construed in any way to compromise the substance of the patient's medical care during this visit.
[2024-04-26 05:22] VITALS: BP 141/76; PULSE 88; RESP 18; TEMP 37.7; O2SAT 95
--- NOTE | 2024-04-26 05:23 | PC.NURSE ---
Pt to room 10 at this time from R4 - assumed care of pt.
[2024-04-26 05:29] LABS: Basophils # (Auto) 0.1 Thou/mm3 (0.0-0.2); Basophils % (Auto) 0 % (0-2.5); Eosinophils % (Auto) 0 % (0-10); Hematocrit 31.2 % (36.0-46.0); Hemoglobin 10.7 g/dL (12.0-16.0); Immature Granulocytes % (Auto) 1 % (0-0); Immature Granulocytes Auto 0.21 Thou/mm3 (0.00-0.00); Lymphocytes # (Auto) 1.1 Thou/mm3 (1.0-4.8); Lymphocytes % (Auto) 5 % (10-50); Mean Corpuscular HGB Conc 34.3 g/dl (31.0-37.0); Mean Corpuscular Hemoglobin 30.9 pg (25.0-35.0); Mean Corpuscular Volume 90 fL (80-100); Monocytes # (Auto) 1.3 Thou/mm3 (0.0-0.8); Monocytes % (Auto) 6 % (0-12); Neutrophils # (Auto) 17.8 Thou/mm3 (1.8-7.7); Neutrophils % (Auto) 87 % (37-80); Nucleated Red Blood Cell % 0 /100 WBC (0); Platelet Count 195 Thou/mm3 (140-440); RDW Standard Deviation 44.3 fL (36.4-46.3); Red Blood Count 3.46 Miln/mm3 (4.00-5.20); White Blood Count 20.4 Thou/mm3 (3.6-11.0)
[2024-04-26 05:52] LABS: Glucose Estimated Average 303 mg/dL (80-131); Hemoglobin A1C 12.2 % Hgb (4.8-6.0)
[2024-04-26 05:54] LABS: Anion Gap 9 (7-16); BUN/Creatinine Ratio 21 Ratio (12-20); Blood Urea Nitrogen 15 mg/dL (9-23); Calcium 7.8 mg/dL (8.3-10.6); Carbon Dioxide 26.5 mMol/L (20.0-31.0); Chloride 101 mMol/L (98-107); Creatinine (Component) 0.7 mg/dL (0.6-1.3); Glucose 218 mg/dL (74-106); Osmolality,Calculated 279 (275-295); Potassium 3.6 mMol/L (3.4-5.1); Sodium 136 mMol/L (136-145); Thyroid Stimulating Hormone 2.84 uIU/mL (0.55-4.78); eGFR > 60 See Note
[2024-04-26 06:16] VITALS: BP 144/76; PULSE 88; RESP 18; TEMP 37.7; O2SAT 95
--- NOTE | 2024-04-26 07:55 | PC.NURSE ---
Pt. here from home to room 10, pt. states yesterday she felt worse, pt. states today she only has a little dizziness, pt. denies pain, nausea or vomiting, pt. ambulate to RR, steady on her feet. No s/s of distress at this time.
[2024-04-26] MEDS: INSULIN LISPRO (AdmeLOG) 1 UNIT/0.01 ML UNIT SC ×4 (08:07→21:19)
[2024-04-26 08:49] VITALS: BP 143/58; PULSE 92; RESP 16; TEMP 36.9; O2SAT 97
[2024-04-26 10:27] VITALS: BP 142/56; PULSE 92; RESP 16; TEMP 37.1; O2SAT 97
[2024-04-26 13:08] LABS: Strep A Rapid Negative (Negative)
[2024-04-26 16:00] VITALS: BP 128/76; PULSE 96; RESP 17; TEMP 36.8; O2SAT 96
[2024-04-26 16:15] VITALS: BMI 34.2
--- NOTE | 2024-04-26 16:32 | PD.RESPRO ---
Documentation for date of: 04/26/24 Subjective Subjective Interval history: 04/26: Patient is an overnight admit. Patient is seen and examined at bedside in the ED. patient states she still has mild left flank pain denies any dysuria. Patient states about 2 days ago she had burning while urination but it resolved within 1 day patient denies any prior history of UTIs. Patient states she got a shot in the back but cannot recall if it was a steroid shot or not. Patient denies chest pain abdominal pain or urinary retention. Patient states she cannot recall how many units of insulin she takes at home. Exam Vital Signs Temp Pulse Resp BP Pulse Ox O2 Del Method 98.7 F 92 16 142/56 H 97 Room Air 04/26/24 10:27 04/26/24 10:27 04/26/24 10:27 04/26/24 10:27 04/26/24 10:27 04/26/24 10:27 Narrative Exam GENERAL: A&Ox3 . Awake, Not in acute distress NEURO: no focal neurological deficits HEENT: Atraumatic, Normocephalic. mucous membranes moist. Eyes open, symmetrical, & clear HEART: Normal Heart Sounds LUNGS: Clear to auscultation with no wheezing or crackles. ABDOMEN: soft, non-distended, non-tender, bowel sounds heard, no guarding or rebound tenderness SKIN: No Rash or ecchymoses EXTREMITIES: No edema, tenderness, able to move all 4 extremities, pedal pulses palpated Objective Labs 04/27/24 10:50 04/27/24 05:37 Labs: Laboratory Results - last 24 hr 04/25/24 04/25/24 04/26/24 17:33 17:53 05:05 WBC 16.9 H 20.4 H RBC 4.07 3.46 L Hgb 12.4 10.7 L Hct 36.2 31.2 L MCV 89 90 MCH 30.5 30.9 MCHC 34.3 34.3 RDW Std Deviation 43.6 44.3 Plt Count 210 D 195 Neut % (Auto) 89 H 87 H Lymph % (Auto) 5 L 5 L [place] % (Auto) 6 6 Eos % (Auto) 0 0 Baso % (Auto) 0 0 Neut # (Auto) 15.0 H 17.8 H Lymph # (Auto) 0.8 L 1.1 [place] # (Auto) 1.0 H 1.3 H Eos # (Auto) 0.0 0.0 Baso # (Auto) 0.0 0.1 Immature Gran # (Auto) 0.12 H 0.21 H Absolute Nucleated RBC 0.00 0.00 Immature Gran % 1 H 1 H Nucleated RBC % 0 0 Sodium 130 L 136 Potassium 4.1 3.6 D Chloride 94 L 101 Carbon Dioxide 26.9 26.5 Anion Gap 9 9 BUN 22 15 Creatinine 0.9 0.7 Estim Creat Clear Calc Not Performed. Not Performed. eGFR > 60 > 60 BUN/Creatinine Ratio 24 H 21 H Glucose 432 H* [address] Glu mg/dL 303 H Hemoglobin A1c 12.2 H Calculated Osmolality 283 279 Lactic Acid 1.5 Calcium 8.7 7.8 L Corrected Calcium 8.8 Total Bilirubin 0.3 AST 47 H ALT 35 Alkaline Phosphatase 201 H D Total Protein 6.8 Albumin 3.9 Globulin 2.9 Albumin/Globulin Ratio 1.3 Procalcitonin 8.03 H TSH 2.84 Ur Collection Type Clean Catch Urine Color Lt-Yellow Urine Clarity Clear Urine pH 6.5 Ur Specific [place] 1.032 Urine Protein 1+ A Urine Glucose (UA) 4+ A Urine Ketones 2+ A Urine Blood 1+ A Urine Nitrite Negative Urine Bilirubin Negative Urine Urobilinogen (Auto) Negative Ur Leukocyte Esterase Positive Urine RBC 2 Urine WBC 11 H Ur Squamous Epith Cells 1 Urine Bacteria None Group A Strep Rapid 04/26/24 12:21 WBC RBC Hgb Hct MCV MCH MCHC RDW Std Deviation Plt Count Neut % (Auto) Lymph % (Auto) [place] % (Auto) Eos % (Auto) Baso % (Auto) Neut # (Auto) Lymph # (Auto) [place] # (Auto) Eos # (Auto) Baso # (Auto) Immature Gran # (Auto) Absolute Nucleated RBC Immature Gran % Nucleated RBC % Sodium Potassium Chloride Carbon Dioxide Anion Gap BUN Creatinine Estim Creat Clear Calc eGFR BUN/Creatinine Ratio Glucose Estimated Ave Glu mg/dL Hemoglobin A1c Calculated Osmolality Lactic Acid Calcium Corrected Calcium Total Bilirubin AST ALT Alkaline Phosphatase Total Protein Albumin Globulin Albumin/Globulin Ratio Procalcitonin TSH Ur Collection Type Urine Color Urine Clarity Urine pH Ur Specific [place] Urine Protein Urine Glucose (UA) Urine Ketones Urine Blood Urine Nitrite Urine Bilirubin Urine Urobilinogen (Auto) Ur Leukocyte Esterase Urine RBC Urine WBC Ur Squamous Epith Cells Urine Bacteria Group A Strep Rapid Negative Quality Measures Quality Measures none Advance care planning discussed with:: patient Assessment & Plan Assessment Current Active Medications: Generic Name Dose Route Start Last Admin Trade Name Dirk PRN Reason Stop Dose Admin Acetaminophen 650 mg 04/26/24 01:05 Acetaminophen 325 Mg Tablet PO 05/26/24 01:04 Q6H PRN Fever >101.5 Dextrose 25 ml 04/26/24 02:45 Dextrose 50%-Water Inj 50 Ml Syringe IV 05/26/24 02:44 Q15MIN PRN BG 50-70 responsive npo pt Dextrose 50 ml 04/26/24 02:45 Dextrose 50%-Water Inj 50 Ml Syringe IV 05/26/24 02:44 Q15MIN PRN BG <50 OR BG <70 & pt unresponsive Glucagon 1 mg 04/26/24 02:45 Glucagon Inj 1 Mg Vial IM Q15MIN PRN BG <70, and no IV access Ceftriaxone Sodium/Dextrose 50 mls @ 100 mls/hr 04/26/24 21:00 Rocephin/D5w 1gm Iv Premix IV 05/03/24 20:59 QPM KARUNA Insulin Glargine 10 unit 04/26/24 22:00 Insulin Glargine (Lantus) 5 Unit/0.05 Ml (Per 5 Units) SC 05/26/24 21:59 HS [facility] Insulin Human Lispro 0 unit 04/26/24 07:30 04/26/24 11:42 Insulin Lispro (Admelog) 1 Unit/0.01 Ml Unit SC 05/26/24 07:29 3 unit ACHS KARUNA Administration Protocol Magnesium Hydroxide 30 ml 04/26/24 01:05 Milk Of Magnesia Susp 30 Ml Udc PO 05/26/24 01:04 QDAY PRN CONSTIPATION Protocol Ondansetron HCl 4 mg 04/26/24 01:05 Ondansetron Inj 2 Mg/Ml Inj 2 Ml IV 05/26/24 01:04 Q6H PRN NAUSEA OR VOMITING Protocol Tramadol HCl 50 mg 04/26/24 03:01 Tramadol Hcl 50 Mg Tablet PO 05/01/24 03:00 Q6HR PRN Pain 6-10 Plan A 68-year-old female with past medical history of diabetes mellitus on insulin presented to hospital with abdominal pain since 1 week and admitted for acute left pyelonephritis # Acute left pyelonephritis # cystitis -Presented with history of left abdominal pain radiating to the back since 1 week -Also endorsed that she is having fever with chills and rigors since 4 days -Labs showed elevated WBC 20.4, procalcitonin 8.03 -Urine analysis showed 1+ proteinuria, 4+ glucosuria, 2+ ketones, 11 WBC -CT chest/abdomen/pelvis showed acute left pyelonephritis and Urinary bladder wall thickening most consistent with cystitis Plan -Started on ceftriaxone 1 g IV daily [04/25- -blood and urine cultures pending # Uncontrolled diabetes mellitus -Blood sugar at the time of admission is 432 - 04/26 -HbA1c is 12.1 -Placed on insulin sliding scale -Started on Lantus 10 units at 10 PM, titrate as needed -Low carb consistent diet -Diabetic education # Mild hyponatremia- resolved -Sodium at the time of admission is 130 -Pseudohyponatremia due to elevated blood sugars, 432 -Monitor electrolytes Hospital Maintenance: Dispo: MedSurg DVT ppx: SCD GI ppx: Not needed Diet: Low carbohydrate consistent IV lines: Peripheral Code status: Full Assessment and plan discussed with my senior resident Dr. Zelaya & attending physician Dr. Tamara Guardado (PGY-1)- Internal medicine resident Attending Provider Attestation/Addendum IKomal DO, attest that I was physically present for the aviles portions of the service and evaluated the patient with the resident and I reviewed and discussed the case with the resident and agree with the resident's findings and plans of care as documented above Patient seen and evaluated this afternoon. Patient states she is doing well and continues to have mild left flank pain and CVA tenderness. She does not endorse dysuria, but recalls 1 day of dysuria prior to the onset of pain. She denies any recent use of abx, but received steroids for her back pain in [place]. Will continue with IV abx and f/u with urine and blood culture.
[2024-04-26 20:00] VITALS: BP 116/57; PULSE 90; RESP 18; TEMP 37.3; O2SAT 96
[2024-04-26] MEDS: cefTRIAXone/D5w 1gm IV premix 50 ML IV (21:01)
[2024-04-26] MEDS: INSULIN GLARGINE (Lantus) 5 UNIT/0.05 ML (PER 5 UNITS) 10 UNIT SC (21:18)
[2024-04-27] VITALS (7 sets, daily range): BP systolic 116–141; BP diastolic 62–78; PULSE 91–103; RESP 16–18; TEMP 36.6–37.4; O2SAT 92–99
[2024-04-27 06:05] LABS: Basophils % (Auto) 0 % (0-2.5); Eosinophils % (Auto) 0 % (0-10); Hematocrit 30.7 % (36.0-46.0); Hemoglobin 10.5 g/dL (12.0-16.0); Immature Granulocytes % (Auto) 1 % (0-0); Lymphocytes % (Auto) 11 % (10-50); Mean Corpuscular HGB Conc 34.2 g/dl (31.0-37.0); Mean Corpuscular Hemoglobin 30.3 pg (25.0-35.0); Mean Corpuscular Volume 89 fL (80-100); Monocytes # (Auto) 1.2 Thou/mm3 (0.0-0.8); Monocytes % (Auto) 6 % (0-12); Neutrophils # (Auto) 15.3 Thou/mm3 (1.8-7.7); Neutrophils % (Auto) 82 % (37-80); Nucleated Red Blood Cell % 0 /100 WBC (0); Platelet Count 211 Thou/mm3 (140-440); RDW Standard Deviation 43.1 fL (36.4-46.3); Red Blood Count 3.47 Miln/mm3 (4.00-5.20); White Blood Count 18.6 Thou/mm3 (3.6-11.0)
[2024-04-27 06:27] LABS: Anion Gap 6 (7-16); BUN/Creatinine Ratio 14 Ratio (12-20); Blood Urea Nitrogen 10 mg/dL (9-23); Calcium 7.9 mg/dL (8.3-10.6); Carbon Dioxide 29.9 mMol/L (20.0-31.0); Chloride 95 mMol/L (98-107); Creatinine (Component) 0.7 mg/dL (0.6-1.3); Estimated Creatinine Clearance 54.4 mL/min (>60); Glucose 194 mg/dL (74-106); Osmolality,Calculated 266 (275-295); Sodium 131 mMol/L (136-145); eGFR > 60 See Note
[2024-04-27] MEDS: INSULIN LISPRO (AdmeLOG) 1 UNIT/0.01 ML UNIT SC ×4 (08:08→22:10)
[2024-04-27] MEDS: traMADol HCL 50 MG TABLET PO ×2 (08:11→16:36)
--- NOTE | 2024-04-27 08:56 | PC.SS ---
Follow up note: On IV antibiotic and monitoring white count.
[2024-04-27 09:39] LABS: Path Review Blood Smear Sent to Pathologist
[2024-04-27 11:55] LABS: Basophils % (Auto) 0 % (0-2.5); Eosinophils % (Auto) 0 % (0-10); Hemoglobin 10.7 g/dL (12.0-16.0); Immature Granulocytes % (Auto) 1 % (0-0); Immature Granulocytes Auto 0.16 Thou/mm3 (0.00-0.00); Lymphocytes % (Auto) 11 % (10-50); Mean Corpuscular HGB Conc 34.5 g/dl (31.0-37.0); Mean Corpuscular Hemoglobin 30.5 pg (25.0-35.0); Mean Corpuscular Volume 88 fL (80-100); Monocytes # (Auto) 0.9 Thou/mm3 (0.0-0.8); Monocytes % (Auto) 5 % (0-12); Neutrophils # (Auto) 15.5 Thou/mm3 (1.8-7.7); Neutrophils % (Auto) 84 % (37-80); Nucleated Red Blood Cell % 0 /100 WBC (0); Platelet Count 255 Thou/mm3 (140-440); RDW Standard Deviation 43.3 fL (36.4-46.3); Red Blood Count 3.51 Miln/mm3 (4.00-5.20); White Blood Count 18.5 Thou/mm3 (3.6-11.0)
--- NOTE | 2024-04-27 19:23 | ESPR_ITS ---
Documentation for date of: 04/27/24 Subjective Subjective Interval history: 04/27: No acute overnight events. Patient seen and examined at bedside this morning. Patient is resting comfortably she states she tolerated diet and denies any chest or abdominal pain patient says her flank pain has significantly improved she has mild tenderness on the left flank side. Denies dysuria or hematuria. Patient has no other complaints. Exam Vital Signs Temp Pulse Resp BP Pulse Ox O2 Del Method 98.2 F 94 17 131/66 H 97 Room Air 04/27/24 16:00 04/27/24 16:00 04/27/24 16:00 04/27/24 16:00 04/27/24 16:00 04/27/24 16:00 Narrative Exam GENERAL: A&Ox3 . Awake, Not in acute distress NEURO: no focal neurological deficits HEENT: Atraumatic, Normocephalic. mucous membranes moist. Eyes open, symmetrical, & clear HEART: Normal Heart Sounds LUNGS: Clear to auscultation with no wheezing or crackles. ABDOMEN: soft, non-distended, non-tender, bowel sounds heard, no guarding or rebound tenderness SKIN: No Rash or ecchymoses EXTREMITIES: No edema, tenderness, able to move all 4 extremities, pedal pulses palpated Objective Labs 04/27/24 10:50 04/27/24 05:37 Labs: Laboratory Results - last 24 hr 04/27/24 04/27/24 05:37 10:50 WBC 18.6 H 18.5 H RBC 3.47 L 3.51 L Hgb 10.5 L 10.7 L Hct 30.7 L 31.0 L MCV 89 88 MCH 30.3 30.5 MCHC 34.2 34.5 RDW Std Deviation 43.1 43.3 Plt Count 211 255 D Neut % (Auto) 82 H 84 H Lymph % (Auto) 11 11 [place] % (Auto) 6 5 Eos % (Auto) 0 0 Baso % (Auto) 0 0 Neut # (Auto) 15.3 H 15.5 H Lymph # (Auto) 2.0 2.0 [place] # (Auto) 1.2 H 0.9 H Eos # (Auto) 0.0 0.0 Baso # (Auto) 0.0 0.0 Immature Gran # (Auto) 0.20 H 0.16 H Absolute Nucleated RBC 0.00 0.00 Immature Gran % 1 H 1 H Nucleated RBC % 0 0 Smear Path Review Sent to Pathologist Sodium 131 L Potassium 4.0 Chloride 95 L Carbon Dioxide 29.9 Anion Gap 6 L BUN 10 Creatinine 0.7 Estim Creat Clear Calc 54.4 L eGFR > 60 BUN/Creatinine Ratio 14 Glucose 194 H Calculated Osmolality 266 L Calcium 7.9 L Quality Measures Quality Measures none Advance care planning discussed with:: patient Assessment & Plan Assessment Current Active Medications: Generic Name Dose Route Start Last Admin Trade Name Freq PRN Reason Stop Dose Admin Acetaminophen 650 mg 04/27/24 14:20 Acetaminophen 325 Mg Tablet PO 05/26/24 01:04 Q6H PRN Temp>100.3 Dextrose 25 ml 04/26/24 02:45 Dextrose 50%-Water Inj 50 Ml Syringe IV 05/26/24 02:44 Q15MIN PRN BG 50-70 responsive npo pt Dextrose 50 ml 04/26/24 02:45 Dextrose 50%-Water Inj 50 Ml Syringe IV 05/26/24 02:44 Q15MIN PRN BG <50 OR BG <70 & pt unresponsive Glucagon 1 mg 04/26/24 02:45 Glucagon Inj 1 Mg Vial IM Q15MIN PRN BG <70, and no IV access Ceftriaxone Sodium/Dextrose 50 mls @ 100 mls/hr 04/26/24 21:00 04/26/24 21:01 Rocephin/D5w 1gm Iv Premix IV 05/03/24 20:59 100 mls/hr QPM KARUNA Administration Insulin Glargine 15 unit 04/27/24 21:00 Insulin Glargine (Lantus) 5 Unit/0.05 Ml (Per 5 Units) SC 05/27/24 20:59 HS KARUNA Insulin Human Lispro 0 unit 04/26/24 07:30 04/27/24 16:47 Insulin Lispro (Admelog) 1 Unit/0.01 Ml Unit SC 05/26/24 07:29 3 unit ACHS KARUNA Administration Protocol Magnesium Hydroxide 30 ml 04/26/24 01:05 Milk Of Magnesia Susp 30 Ml Udc PO 05/26/24 01:04 QDAY PRN CONSTIPATION Protocol Ondansetron HCl 4 mg 04/26/24 01:05 Ondansetron Inj 2 Mg/Ml Inj 2 Ml IV 05/26/24 01:04 Q6H PRN NAUSEA OR VOMITING Protocol Tramadol HCl 50 mg 04/26/24 03:01 04/27/24 16:36 Tramadol Hcl 50 Mg Tablet PO 05/01/24 03:00 50 mg Q6HR PRN Administration Pain 6-10 Plan A 68-year-old female with past medical history of diabetes mellitus on insulin presented to hospital with abdominal pain since 1 week and admitted for acute left pyelonephritis # Acute left pyelonephritis # cystitis -Presented with history of left abdominal pain radiating to the back since 1 week -Also endorsed that she is having fever with chills and rigors since 4 days -Labs showed elevated WBC 20.4, procalcitonin 8.03 -Urine analysis showed 1+ proteinuria, 4+ glucosuria, 2+ ketones, 11 WBC -CT chest/abdomen/pelvis showed acute left pyelonephritis and Urinary bladder wall thickening most consistent with cystitis Plan -Started on ceftriaxone 1 g IV daily [04/25- -blood and urine cultures negative # Uncontrolled diabetes mellitus -Blood sugar at the time of admission is 432 - 04/26 -HbA1c is 12.1 -Placed on insulin sliding scale -Started on Lantus 10 units at 10 PM, titrate as needed -Low carb consistent diet -Diabetic education # Mild hyponatremia- resolved -Sodium at the time of admission is 130 -Pseudohyponatremia due to elevated blood sugars, 432 -Monitor electrolytes Hospital Maintenance: Dispo: MedSurg, IV antibiotics for UTI DVT ppx: SCD GI ppx: Not needed Diet: Low carbohydrate consistent IV lines: Peripheral Code status: Full Assessment and plan discussed with my senior resident Dr. Zelaya & attending physician Dr. Haleigh Guardado (PGY-1)- Internal medicine resident Senior resident attestation: Patient evaluated and examined at the bedside, plan of care discussed with rest of the team including my attending physician, except as noted. Garcia PGY2
[2024-04-27] MEDS: INSULIN GLARGINE (Lantus) 5 UNIT/0.05 ML (PER 5 UNITS) 15 UNIT SC (22:09)
[2024-04-27] MEDS: cefTRIAXone/D5w 1gm IV premix 50 ML IV (22:11)
[2024-04-28 04:00] VITALS: BP 123/62; PULSE 97; RESP 16; TEMP 36.5; O2SAT 95
[2024-04-28 05:55] LABS: Basophils % (Auto) 0 % (0-2.5); Eosinophils % (Auto) 0 % (0-10); Hemoglobin 9.7 g/dL (12.0-16.0); Immature Granulocytes % (Auto) 1 % (0-0); Immature Granulocytes Auto 0.15 Thou/mm3 (0.00-0.00); Lymphocytes # (Auto) 1.6 Thou/mm3 (1.0-4.8); Lymphocytes % (Auto) 11 % (10-50); Mean Corpuscular HGB Conc 34.6 g/dl (31.0-37.0); Mean Corpuscular Volume 90 fL (80-100); Monocytes # (Auto) 0.8 Thou/mm3 (0.0-0.8); Monocytes % (Auto) 6 % (0-12); Neutrophils # (Auto) 11.2 Thou/mm3 (1.8-7.7); Neutrophils % (Auto) 81 % (37-80); Nucleated Red Blood Cell % 0 /100 WBC (0); Platelet Count 256 Thou/mm3 (140-440); RDW Standard Deviation 43.5 fL (36.4-46.3); Red Blood Count 3.13 Miln/mm3 (4.00-5.20); White Blood Count 13.8 Thou/mm3 (3.6-11.0)
[2024-04-28 06:20] LABS: Anion Gap 7 (7-16); BUN/Creatinine Ratio 20 Ratio (12-20); Blood Urea Nitrogen 16 mg/dL (9-23); Calcium 7.8 mg/dL (8.3-10.6); Chloride 94 mMol/L (98-107); Creatinine (Component) 0.8 mg/dL (0.6-1.3); Estimated Creatinine Clearance 47.6 mL/min (>60); Glucose 216 mg/dL (74-106); Osmolality,Calculated 269 (275-295); Potassium 3.6 mMol/L (3.4-5.1); Sodium 130 mMol/L (136-145); eGFR > 60 See Note
[2024-04-28] MEDS: INSULIN LISPRO (AdmeLOG) 1 UNIT/0.01 ML UNIT SC (07:56)
[2024-04-28 08:00] VITALS: BP 114/57; PULSE 88; RESP 16; TEMP 36.7; O2SAT 95
[2024-04-28 12:00] VITALS: BP 140/73; PULSE 90; RESP 16; TEMP 36.7; O2SAT 98
--- NOTE | 2024-04-28 14:41 | PD.RESDS ---
Planned Discharge Date 04/28/24 DS: Providers Provider Date of admission: 04/26/24 01:05 Primary care physician: Jarrett Young MD Admitting Provider: Poli Millan DO Attending Provider on Admission: Komal Mcdonald DO Consults: 04/26/24 03:00 Referral Registered Dietitian Routine Comment: Attending Provider on DC: Herbie Dudley MD Discharging Provider: Herbie Dudley MD DS: Diagnosis Problem List Completed Was Problem List Reviewed/Reconciled?: Yes Hospital Course Hospital Course Hospital course: Patient is a 68-year-old Chinese-speaking female with past medical history of type 2 diabetes on insulin and noncompliant who came in with a chief complaint of abdominal pain on her left side lasting for the last 1 week. Patient had gone recently to see her physician in [place] and received a shot in her back that was unknown to her and stated [place] so she decided to come to the hospital once she was having fever with chills and rigors. Upon presentation patient denied any micturition, shortness of breath, dysuria, palpitations, chest pain or any other associated symptoms. Patient was recently seen in the emergency department 2 days prior with similar complaints was diagnosed with uncontrolled diabetes. Urine analysis from that day revealed the patient likely was suffering from urinary tract infection with significant leukocytosis and bacteria noted on that urine analysis. A CT abdomen pelvis was ordered for the patient which revealed acute left pyelonephritis and so the patient was admitted for the management of pyelonephritis. Patient was initiated on ceftriaxone and initial labs revealed a leukocytosis with white count at 16.9 and hyperglycemia with glucose of 432. Patient remained hospitalized due to bed leukocytosis but remained afebrile and without further complaints. Patient's urine culture did not result in any bacterial growth likely due to the fact that she received Rocephin in the emergency department prior to urine culture. Patient had returned to baseline health and had received diabetic education so she was medically cleared for discharge on cefpodoxime to be completed for antibiotic therapy. Patient was also recommended to follow-up at the [facility] for further management of her chronic medical conditions including uncontrolled type 2 diabetes. Plan for discharge discussed with supervising attending Dr. Haleigh Dudley M.D. PGY-3 A 68-year-old female with past medical history of diabetes mellitus on insulin presented to hospital with abdominal pain since 1 week and admitted for acute left pyelonephritis # Acute left pyelonephritis # Secondary to uncontrolled diabetes mellitus # Leukocytosis -Presented with history of left abdominal pain radiating to the back since 1 week -Also endorsed that she is having fever with chills and rigors since 4 days -Vitals are stable at the time of admission except for mildly elevated blood pressure 135/84 mmHg -On examination left costovertebral tenderness noted -Labs showed elevated WBC 16.9, procalcitonin 8.03 -Urine analysis showed 1+ proteinuria, 4+ glucosuria, 2+ ketones, 11 WBC -CT chest/abdomen/pelvis showed acute left pyelonephritis Plan -Started on ceftriaxone 1 g IV daily [04/25- -follow-up with blood and urine culture results # Uncontrolled diabetes mellitus -Blood sugar at the time of admission is 432 -A1c is 10.2 in 2020 -Repeat HbA1c is ordered -Placed on insulin sliding scale -Started on Lantus 10 units at 10 PM, titrate as needed -Low carb consistent diet -Diabetic education # Mild hyponatremia -Sodium at the time of admission is 130 -Pseudohyponatremia due to elevated blood sugars, 432 -Monitor electrolytes Hospital Maintenance: Dispo: MedSurg DVT ppx: SCD GI ppx: Not needed Diet: Low carbohydrate consistent IV lines: Peripheral Code status: Associate Professor Of Pathology spent discussing smoking cessation with patient: more than 10 minutes Status at Discharge Functional status at discharge: independent ambulation Overall status at discharge: patient is progressing back to baseline Time Spent with Patient Time attestation: Total time spent providing and/or coordinating discharge services: Time spent: Greater than 30 minutes Exam Vital Signs Temp Pulse Resp BP Pulse Ox O2 Del Method 98.1 F 90 16 140/73 H 98 Room Air 04/28/24 12:00 04/28/24 12:00 04/28/24 12:00 04/28/24 12:00 04/28/24 12:00 04/28/24 12:00 Narrative Exam GENERAL: A&Ox3 . Awake, Not in acute distress NEURO: no focal neurological deficits HEENT: Atraumatic, Normocephalic. mucous membranes moist. Eyes open, symmetrical, & clear HEART: Normal Heart Sounds LUNGS: Clear to auscultation with no wheezing or crackles. ABDOMEN: soft, non-distended, non-tender, bowel sounds heard, no guarding or rebound tenderness SKIN: No Rash or ecchymoses EXTREMITIES: No edema, tenderness, able to move all 4 extremities, pedal pulses palpated Discharge Plan Plan Patient Disposition: HOME (Self Care) Patient condition on transfer: Stable Care Plan Goals: Patient is recommended reconcile with primary care physician within 1 week to discuss recent hospitalization Patient is recommended to continue with insulin for management of type 2 diabetes that is insulin-dependent Patient is recommended to take 15 units of long-acting insulin once daily at bedtime. Patient is also recommended to take 5 units of short acting insulin lispro prior to eating a meal. Patient is to ensure that she does eat a meal if she does take short acting insulin to ensure that she does not develop hypoglycemia. If patient is having hypoglycemia overnight with low blood glucose early in the a.m. and she is recommended to reduce her long-acting insulin to 10 units and see if her morning glucose improves. Patient will follow-up at the [facility] for further management of her diabetes and to be worked up for her anemia. Please follow-up at the [facility] located at [address] [place] [address] [address] Dylon Saunders and a cuban speaking resident physician Prescriptions/Referrals Prescriptions/Med Rec: New cefpodoxime 200 mg tablet 200 mg PO BID Qty: 20 0RF Rx Instructions: must administer with a meal/food (DME) pen needle, diabetic 29 gauge x 1/2 needle See Rx Instructions .Route Qty: 100 0RF Rx Instructions: As directed Continued Levemir U-100 Insulin 100 unit/mL Solution 20 unit SUBCUT HS Qty: 10 0RF Discontinued doxycycline hyclate 100 mg tablet 100 mg PO BID Qty: 14 0RF amoxicillin-pot clavulanate 875-125 mg tablet 1 tab PO BID Qty: 14 0RF Referrals: Jarrett Young MD [Primary Care Provider] - Dylon Saunders MD [Physician] - Patient/Caregiver Discharge Instructions Print Language: Chinese Stand Alone Forms: Jane Award Info., Patient Portal Info Letter Discharge Order Discharge Orders: Discharge (Routine); Ordered 04/28/24 Ordered By: Jayson Young Quality Discharge Quality Measures none
--- NOTE | 2024-04-28 14:55 | PC.SS ---
SS was informed pt was interested in a PCP appointment at the [facility]. SS emailed [facility] team.
--- NOTE | 2024-04-28 15:25 | PC.SS ---
Late note 04-27-24: SS met with patient regarding her d/c plan. Pt is alert/oriented. Pt was admitted for Ab Pain. Pt confirmed demographic and contact information is correct on facesheet. Pt resides with . Pt ambulates independently without assistance or DME. Pt is ok with all ADLs. Patient?s pharmacy of choice is [facility]. Pt named her son, Nadeem Cárdenas medical decision maker if she is unable. SS provided verbal choices for d/c to home or SNF. Patient?s choice is to return home upon d/c. Pt does not have an advance directive, SS offered, and pt declined. Pt states she is diabetic, glucometer, and test strips. Pt states she uses insulin injections for her diabests. Pt followed up with [facility] in January 2024. D/C plan: Return home Next of Kin: Nadeem Cárdenas, son, phone# [phone] PCP: Dr. Jarrett Young from [facility] Address: Correct on facesheet
== END 2024-04-28 15:20 | disposition home or self-care (01) | DRG 690 ==
LOC: SERX 04-26 00:33 → SERHOLD 04-26 06:41 → S3EX 04-26 12:07 → S3NX 04-27 16:35
PROVIDERS: Nurse Practitioner Primary Care; Student in an Organized Health Care Education/Training Program; Admitting Provider Student in an Organized Health Care Education/Training Program; Emergency Provider Emergency Medicine; PCP Family Medicine; Visit Provider Internal Medicine
DX: N10 Acute pyelonephritis (principal); E87.1 Hypo-osmolality and hyponatremia; E11.65 Type 2 diabetes mellitus with hyperglycemia
CPT/HCPCS: 36415; 71046; 71260; 74177; 80048; 80053; 81001; 83036; 83605; 84145; 84443; 85025; 87040; 87086; 87400; 87651; 87811; A4649; J0696; J1815; J7030; Q9967; A9270